=== PATIENT | male | born 1955 | race Caucasian/White ===

== ENCOUNTER 2024-10-30 07:25 | Day surgery (SDC) | payer MEDICARE, OTHER ==
[2024-10-17 12:07] VITALS: BP 120/58
[~2024-10-30] VITALS: Ht 175.3 cm; Wt 114.5 kg
[~2024-10-30 07:25] MED LIST: ALDACTONE25 MG PO; ALLOPURINOL300 MG PO; ASPIRIN EC81 MG PO; ATIVAN2 MG PO; CEFAZOLIN SODIUM 2 GM/20 ML SYR IV SCH; CO Q10200 MG PO; COLCHICINE0.6 M1 PO; FISH OIL500 M1 PO; FOLIC ACID1 MG PO; FUROSEMIDE40 MG PO; GABAPENTIN 600 MG TAB PO SCH; GARLIPURE600 MG PO; IBLOOD GLUCOSE TEST STRIP 1 EA TEST VI PRN; INTRA-ARTICULAR ANALGESIC INJECTION XX SCH; LACTATED RINGER'S 1,000 ML IV SCH; LIDOCAINE HCL 1% 5 ML SDV INJ ONE; LIPITOR20 MG GT; MELOXICAM7.5 MG PO; METHOTREXATE2.5 MG; METOPROLOL SUCC50 MG PO; MOTRIN IB200 MG PO; MULTIVITAMINS1 EAC7 PO; OXYCODON-ACETA1 EAC2 PO; OXYCODONE HCL 5 MG TAB PO SCH; PANTOPRAZOLE SODIUM 40 MG TABEC PO SCH; PEPCID40 MG PO; PERCOCET 7.5-31 EACH PO; PRILOSEC OTC20 MG PO; PROSTATE SR SO1 EACH PO; ROPIVACAINE IN 0.9% SOD CHL/PF 545 ML ELS.PMP.HR IRRIGATION SCH; Ropivacaine HCl 20 MG/10 ML AMP ONE; TRANEXAMIC ACID IN NACL,ISO-OS 1,000 MG/100 ML PIGGYBACK IV SCH; TYLENOL325 MG PO; VITAMIN C1000 MG PO; [UNRECOGNIZED DRUG - OTHER]; [UNRECOGNIZED DRUG - OTHER] PO; ondansetron HCL 4 MG TAB PO SCH
--- NOTE | 2024-10-30 07:51 | NUR ---
PT NOT AVAILABLE. VISITED WITH FAMILY MEMBER IN HALLWAY. PROVIDED SUPPORTIVE PRESENCE, HOSPITALITY, PRAYER, FACILITATED INTERACTION WITH THERAPY ANIMAL.
[2024-10-30 08:01] VITALS: BP 147/73
[2024-10-30] MEDS ORDERED: CEFUROXIME500 MG PO (08:19)
[2024-10-30] MEDS ORDERED: DEXAMETHASONE SOD PHOS 4 MG/ML VIAL ONE ×2 (09:13→10:20)
[2024-10-30] MEDS ORDERED: dexmedeTOMIDine HCl 200 MCG/2 ML VIAL ONE (09:13)
[2024-10-30] MEDS ORDERED: Ropivacaine HCl 0.5% 30 ML VIAL ONE (09:13)
[2024-10-30] MEDS ORDERED: LIDOCAINE HCL 2% 5 ML SDV ONE ×2 (09:13→10:20)
[2024-10-30] MEDS ORDERED: SODIUM CHLORIDE 0.9% 40 ML IV ONE (09:13)
[2024-10-30] MEDS ORDERED: MIDAZOLAM HCL 2 MG/2 ML VIAL ONE (09:13)
[2024-10-30] MEDS ORDERED: ondansetron HCL 4 MG/2 ML VIAL ONE (10:20)
[2024-10-30] MEDS ORDERED: propofoL 200 MG/20 ML VIAL ONE ×2 (10:20→12:17)
[2024-10-30] MEDS ORDERED: OXYCODONE HCL 5 MG TAB PO PRN (11:00)
[2024-10-30] MEDS ORDERED: KETOROLAC TROMETHAMINE 30 MG/ML VIAL IV PRN (11:00)
[2024-10-30] MEDS ORDERED: CEFUROXIME250 MG PO (12:45)
[2024-10-30] MEDS ORDERED: SENNA LAX8.6 MG PO (12:45)
[2024-10-30] MEDS ORDERED: OXYCODONE HCL5 MG PO (12:45)
[2024-10-30] MEDS ORDERED: ASPIRIN325 MG PO (12:45)
[2024-10-30] MEDS ORDERED: GABAPENTIN300 MG PO (12:45)
--- NOTE | 2024-10-30 13:19 | NUR ---
10/30/24 1319 Lucie Ratliff 1247-PT ARRIVES TO PACU, VIA STRETCHER, PT NOT RESPONISIVE TO NOXIOUS STIMULI, OPA IN PLACE, VSS ON 6L VIA MASK, RR EVEN AND UNLABORED. CRYO CUFF APPLIED TO RT KNEE. 1255-PT RESPONSIVE TO VERBAL AND TACTILE STIMULI, OPA REMOVED, VSS ON 6L ON MASK. PT DENIES PAIN OR NAUSEA. 1257-PATIENT SERVICES TECHNICIAN AT BEDSIDE FOR POST OP RT KNEE X-RAY. 1300-PT TITRATED TO RA,VS REMAIN STABLE. 1305-PT SITTING UP IN BED SIPPING ON WATER, DENIES PAIN OR NAUSEA, VSS ON RA.
--- NOTE | 2024-10-30 13:25 | NUR ---
PT ARRIVES TO DS DEPT FROM PACU VIA STRETCHER. PT IS A&O AND ASKING QUESTIONS APPROPRIATELY. PT ABLE TO SLIGHTLY WIGGLE TOES. URINAL AT BEDSIDE. CALL LIGHT WITHIN REACH. PRESCRIPTION GIVEN TO SON IN LAW WHO IS TAKING IT TO PHARMACY.
[2024-10-30 13:28] VITALS: BP 120/70
[2024-10-30] MEDS ORDERED: TRANEXAMIC ACID IN NACL,ISO-OS 1,000 MG/100 ML PIGGYBACK IV SCH (13:30)
[2024-10-30] MEDS ORDERED: fentaNYL citrate 50 MCG/ML SDV IV PRN (14:00)
[2024-10-30] MEDS ORDERED: NALOXONE HCL 0.4 MG SYR IV PRN (14:00)
--- NOTE | 2024-10-30 14:10 | NUR ---
IN PT ROOM FOR DELIVERY OF LUNCH, PT SAT UP AND WATER REFILLED. PT TOLERATED LUNCH WITHOUT DIFFICULTY SWALLOWING OR ONSET OF NAUSEA.
[2024-10-30 14:30] VITALS: BP 119/71
--- NOTE | 2024-10-30 14:30 | NUR ---
IN PT ROOM FOR PT ASSESSMENT AND VS. NO ACUTE CHANGES FROM PREVIOUS ASSESSMENT. SPINAL HAS RESOLVED. PT ABLE TO LIFT LEGS AND PERFORM FOOT EXERCISES WITHOUT DIFFICULTY. PT TOLERATED 100% OF LUNCH, REPORTS NO NAUSEA . TXA COMPLETE. PT REPORTS MINIMAL PAIN, STATES IT IS A TOLERABLE LEVEL AT THIS TIME. CALL LIGHT WITHIN REACH, PT STATES NO FURTHER NEEDS OR QUESTIONS AT THIS TIME.
--- NOTE | 2024-10-30 14:50 | NUR ---
PT BACK FROM PHYSICAL THERAPY, PT REPORTS PAIN REMAINS TOLERABLE AT 2/10. SMALL SPOT OF RED SHADOWING ON SUPERIOR ASPECT OF SURGERY DRESSING, REMAINS INTACT POST AMBULATION. PT URINE VOID IN URINAL DURING PHYSICAL THERAPY FOR VOLUME OF 225 ML. PT BACK IN ROOM AND THIS RN ASSISTING PT WITH GETTING DRESSED AT THIS TIME. CALL LIGHT WITHIN REACH.
[2024-10-30] MEDS ORDERED: CEFAZOLIN SODIUM 3 GM/30 ML SYR IV SCH (15:00)
[2024-10-30] MEDS ORDERED: GABAPENTIN 300 MG CAP PO SCH (15:00)
--- NOTE | 2024-10-30 16:05 | NUR ---
PT WORKING WITH PRAVEENA FROM PHYSICAL THERAPY AT THIS TIME.
[2024-10-30 16:51] VITALS: BP 136/69
--- NOTE | 2024-10-30 17:00 | NUR ---
THIS RN CALLED LUZ ELENA ERVIN AND UPDATED ON PT CONDITION AND PT MEETING OF ALL REQUIREMENTS. VO FOR DC. MEDS GIVEN (SEE EMAR). DC EDUCATION PROVIDED BY THIS RN, PT AND FAMILY STATE NO FURTHER QUESTIONS AT THIS TIME. PT OFF OF UNIT VIA WC TO PASSENGER SIDE OF VEHICLE. PT REPORTS NO FURTHER NEEDS AT THIS TIME. ALL BELONGINGS IN PT POSSESSION. ICE PACK FOR TRANSPORTATION PROVIDED.
[2024-10-30] MEDS ORDERED: ASPIRIN 325 MG TAB PO SCH (21:00)
[2024-10-30] MEDS ORDERED: SENNOSIDES 1 TAB PO SCH (21:00)
[2024-10-31] MEDS ORDERED: cefuroxime axetiL 250 MG TAB PO SCH (09:00)
--- NOTE | 2024-11-06 07:33 | OR ---
[facility] [address] [place], [place] [address] Signed DATE OF OPERATION: 10/30/2024 SURGEON: Joao Nelson MD PREOPERATIVE DIAGNOSIS: Degenerative joint disease, right knee. POSTOPERATIVE DIAGNOSIS: Degenerative joint disease, right knee. PROCEDURE PERFORMED: Right total knee arthroplasty with Dain. MORTGAGE ANALYST: Joselin Recinos PA-C. ANESTHESIA: Spinal. BLOOD LOSS: 175 mL. TOURNIQUET TIME: Zero. IMPLANTS: Kaia Triathlon size 5, 11 mm polyethylene and a 35 mm patella. BRIEF HISTORY: Estephanie is a 69-year-old gentleman with progressive worsening of osteoarthritis in his knee. He had undergone nonoperative treatment without substantial relief. Risks and benefits of operative treatment were discussed with him and he elected to proceed. DESCRIPTION OF PROCEDURE: Once consent was obtained, he was taken to the operating room. After adequate anesthesia, he was placed on the operating table. A hip bump was placed. The right leg was prepped and draped in a standard sterile fashion. The knee was approached through a standard anterior midline incision, carried through the skin and subcutaneous tissue. A low midvastus arthrotomy was performed and the infrapatellar fat pad was excised and the MCL was elevated around to the posteromedial corner. Anterior horns of the menisci were Electronically Signed By: JOAO NELSON MD 11/06/24 0733 PATIENT NAME: ESTEPHANIE BRIZUELA OPERATIVE REPORT DATE OF : 53 REPORT #: [id number] PHYSICIAN: JOAO NELSON MD PCP: FAMILIA ELLINGTON MD REPORT IS CONFIDENTIAL AND NOT TO BE RELEASED WITHOUT AUTHORIZATION [facility] [address] [place], [place] [address] Signed transected and the ACL was transected. PCL was found to be intact. The navigation computer arrays were then placed in the distal femur and proximal tibia. The leg was registered with the computer followed by the fine anatomic points of the knee. The four ligamentous poses were then taken and adjustments were made to the computer plan to balance the ligaments. Once this was completed, the robot was brought in. The 4 straight cuts and 2 angle cuts were made with care taken to protect the patellar tendon and MCL. The bony remnants were removed as were any remaining osteophytes. The posterior osteophytes were removed off the femur. No release was performed. The trials were then positioned and the knee was taken through range of motion and found to be stable, although the 10 mm polyethylene was a little bit loose. The patella was cut sized and drilled for a 35 patella. The distal femoral drill holes were finished and the proximal tibia was finished using the keel punch followed by drill. The prosthesis was then obtained. The tibia was impacted into position first followed by the polyethylene. The femur was impacted. The knee was extended and loaded. The patella was clamped into position until it was seated flush. Patellar tracking was noted to be good at the end of this portion of the procedure. The wound was then copiously irrigated with one bottle of Surgiphor followed by normal saline. The periarticular soft tissues were injected with 80 mL of ropivacaine and Toradol mixture. The On-Q pain pump was percutaneously placed into the adductor canal from the suprapatellar pouch. The arthrotomy was then closed using #2 FiberWire and #2 Stratafix, subcutaneous tissue with 0 Stratafix and the skin with 3-0. Wound was sealed with LiquiBand and Steri-Strips, dressed with Acticoat-7 dressing, ABD, and Judson wrap. He tolerated the procedure well. All sponge, needle, and instrument counts were correct. Joao Nelson MD BA/MODL /[id number] Copies: ~ Electronically Signed By: JOAO NELSON MD 11/06/24 0733 PATIENT NAME: ESTEPHANIE BRIZUELA OPERATIVE REPORT DATE OF : 53 REPORT #: [id number] PHYSICIAN: JOAO NELSON MD PCP: FAMILIA ELLINGTON MD REPORT IS CONFIDENTIAL AND NOT TO BE RELEASED WITHOUT AUTHORIZATION
== END 2024-10-30 17:15 | disposition home or self-care (01) ==
LOC: DS 07:25
PROVIDERS: ATTEND Specialist
PROC: 0SRC0JZ Replacement of Right Knee Joint with Synthetic Substitute, Open Approach (ICD-10-PCS; principal; 2024-10-30 11:30)
DX: M17.11 Unilateral primary osteoarthritis, right knee (principal); K21.9 Gastro-esophageal reflux disease without esophagitis; I10 Essential (primary) hypertension; E78.00 Pure hypercholesterolemia, unspecified; M10.9 Gout, unspecified; Z79.899 Other long term (current) drug therapy
CPT/HCPCS: 01402; 64447; 64450; 64454; 73560; 76942; 97161; 97530; A9270; C1776; J0690; J1100; J2003; J2250; J2405; J2704; J2795; J7121; J7999